=== PATIENT | female | born 1990 | race Two or more races ===

== ENCOUNTER 2020-09-10 14:57 | Outpatient (CLI) | payer MEDICAID ==
--- NOTE | 2020-09-10 17:06 | Ultrasound Report ---
PROCEDURE: Pelvic w/Transvaginal INDICATIONS: MENORRHAGIA TECHNIQUE: Real-time scanning was performed of the pelvic organs, with image documentation. Additional endovagi nal scanning was necessary due to incomplete visualization of the adnexal and endometrial structures by transabdominal scanning. COMPARISON: None. FINDINGS: Transabdominal scanning: Limited scanning through the kidneys shows no hydronephrosis. No pathologi c free abdominal or pelvic fluid. Endovaginal scanning: Uterus: Uterus is normal in size at 7.4 x 2.9 x 5.2 cm. The endometrium measures 5 mm in combined t hickness. Normal endometrial echotexture. Ovaries: Right ovary measures 3.1 x 2.2 x 2.3 cm. Right ovarian volume measures 8.1 mL. Left ovary m easures 2.5 x 2.6 x 3.4 cm with ovarian volume of 11.4 mL. There are less than 12 follicles visualize d in the bilateral ovaries. No suspicious ovarian or adnexal mass lesion. IMPRESSION: Unremarkable sonographic evaluation of the pelvis. Reviewed by: Philippe Chang MD on 09/10/2020 5:05 PM PST Approved by: Philippe Chang MD on 09/10/2020 5:05 PM PST Station ID: [id number]
== END 2020-09-10 14:58 | disposition home or self-care (01) ==
LOC: DI 14:57
PROVIDERS: ATTEND Nurse Practitioner Obstetrics & Gynecology
DX: N92.0 Excessive and frequent menstruation with regular cycle (principal); R53.83 Other fatigue; L65.9 Nonscarring hair loss, unspecified
CPT/HCPCS: 36415; 80053; 84403; 84439; 84443; 85027

== ENCOUNTER 2020-09-10 16:05 | Outpatient (CLI) | payer MEDICAID ==
[2020-09-10 16:26] LABS: HGB - HEMOGLOBIN 13.1 g/dL (12.0-16.0); MEAN CORPUSCULAR HEMOGLOBIN 30.8 pg (27.0-31.0); MEAN CORPUSCULAR HGB CONC 33.4 g/dL (32.0-36.0); MEAN CORPUSCULAR VOLUME 92.2 fL (81.0-99.0); RED BLOOD COUNT 4.25 10^6/uL (4.20-5.40); RED CELL DISTRIBUTION WIDTH 12.8 % (12.0-15.0); WHITE BLOOD COUNT 4.2 x10^3/uL (4.8-10.8)
[2020-09-10 16:42] LABS: ALBUMIN 4.6 g/dL (3.2-5.5); ALBUMIN/GLOBULIN RATIO 1.5 (1.0-2.2); BILIRUBIN,TOTAL 0.8 mg/dL (0.2-1.0); CALCIUM 9.8 mg/dL (8.5-10.3); CREATININE 0.7 mg/dL (0.4-1.0); TOTAL PROTEIN 7.6 g/dL (6.7-8.2)
[2020-09-10 17:00] LABS: THYROID STIMULATING HORMONE 1.79 uIU/mL (0.34-5.60)
[2020-09-10 17:02] LABS: FREE T4 (FREE THYROXINE) 1.3 ng/dL (0.58-1.64)
== END 2020-09-10 16:06 | disposition home or self-care (01) ==
LOC: LAB 16:05
PROVIDERS: ATTEND Nurse Practitioner Obstetrics & Gynecology
DX: R53.83 Other fatigue (principal); L65.9 Nonscarring hair loss, unspecified; N92.0 Excessive and frequent menstruation with regular cycle
CPT/HCPCS: 36415; 80053; 84403; 84439; 84443; 85027

== ENCOUNTER 2020-11-27 15:24 | Outpatient (CLI) | payer MEDICAID ==
[2020-11-27 16:31] VITALS: BP 110/61
--- NOTE | 2020-11-27 16:31 | SLEEP CARE CONSULTATION ---
Information from patient questionnaire entered by Prashant Lopez. I have reviewed and concur with the information entered by Prashant Lopez. This document represents the service I personally performed and the decisions made by me, Jessie Owen ARNP. History of Present Illness Service Date and Time: 11/27/2020 1524 Reason for Visit: New patient Chief Complaint: reports: Unrefreshed sleep, Snoring (rarely), Excessive daytime sleepiness, Fatigue, Frequent awakenings at night, Other (sexsomnia). denies: Observed pauses in breathing Date of Onset: Since 5, besides sexsomnia Usual bedtime: 10 PM Time it takes to fall asleep: lately less than 1 hour Snores at night: No (Not sure, partner says no) Observed to quit breathing while asleep: No Sleeps alone due to snoring: No Number of times waking at night: 2-15, depends Reasons for waking at night: reports: Bathroom, Other (Just awake, bathroom when I was younger). denies: Choking, Snoring, Gasping for air Toss, Turn, or Twitch while sleeping: Yes Recalls having dreams: Yes Usually gets out of bed at: 7 AM Feels refreshed in the morning: No Morning headache: Yes (1-2 times a month) Sleepy or fatigued during the day: Yes Ever fallen asleep while driving: No Takes day naps: No (But I want to) Dreams during day naps: Yes Prior sleep studies: No Additional HPI information: I had the pleasure of seeing DOMO DUENAS today regarding the possibility of her having a sleep disorder. Her current complaints are insomnia, frequent night awakening, unrefreshed sleep, excessive daytime sleepiness, fatigue and sexsomnia. She has had insomnia since she was a child. She feels it has improved as an adult in the last few years but she continues to be excessively sleepy during the day. She is not sleeping through the night. She feels like she does not go deep enough to sleep but if she does dream while she sleeps she feels more exhausted in the morning. She has tried oral melatonin to help her go to sleep but the pills did not seem to help much. She states the liquid melatonin works better as her body seems to process it faster so she can sleep. She get "crazy active dreams" with this however. It takes 1-2 hours to get to sleep at night without the melatonin. She then wakes up fully alert after 1-2 hours, takes 30 minutes to 3 hours to go back to sleep. Or she may not get back to sleep at all. She tries to stay away from phone, TV or other distractions that would keep her from going back to sleep. She feels that not enough sleep is affecting her physical and mental well being. Another concern is that she has had 5-6 incidences of sexsomnia with her current partner and is concerned about this new symptom. She has a history of bruxism. She does snore on occasion, especially after drinking alcohol or being really tired. Her grandmother should be on CPAP for sleep apnea but is on nocturnal oxygen. - Parasomnia Symptoms Ever been unable to move upon waking from sleep: Yes Walks in sleep: No Talks in sleep: No Ever acted out dreams in sleep: No Ever felt weak in the knees when startled or emotional: Yes (never fallen to ground) Bothered by creepy, crawly, restless sensations in legs: No Problems with memory or concentration: Yes (both, overall blurriness of fatigue slows brain down) Subjective Initial Ashley Sleepiness Scale score: 15 (in 2020) Past Medical History Past Medical History: reports: Claustrophobia, Anxiety, Depression, GERD Social History The patient's occupation is a [employer]. Patient is Single and lives in [place]. Have you smoked in the past 12 months: No Cigarettes per day (20/pack): 2 Years of smokin Quit date: 2012 Smoking Pack Years: 0.2 Alcohol use: Yes Alcohol amount and frequency: 1 beer once a week Caffeine use: Yes Caffeine amount and frequency: 1/2 cup of coffee a week Family History Family history of sleep disordered breathing: Yes (apnea-grandmother) Family Hx Sleep Apnea: Grandparent: Sleep apnea - Untreated Allergies and Home Medications Drug allergies reviewed: Yes (penicillin) Home medication list reviewed: Yes Allergy and home medication list: daily vitamins probiotic fiber liquid Melatonin for bedtime Review of Systems Cardiovascular: denies: high blood pressure Gastrointestinal: reports: heartburn, abdominal pain Urinary: reports: frequency, urgency Neurological: denies: headaches Psychiatric: reports: anxiety, depression, claustrophobia Ear/Nose/Throat: reports: dry mouth/throat (a little bit, uses mouthwash that helps). denies: tonsillectomy, wisdom teeth removed Endocrine: reports: sluggishness (tired), increased urination, unexplained weakness Musculoskeletal: reports: neck pain, back pain, muscle pain or cramping Immunologic: reports: allergies to food or environment Physical Exam Blood Pressure: 110/61 Cuff size: wrist Heart Rate: 80 O2 Saturation: 100 Height: 5 ft 11 in Weight: 151 lb Body Mass Index: 21.0 BMI Classification: Healthy weight Neck circumference: 12.5 (inches) Nostrils: patent to airflow Mouth and throat: narrow oropharynx Soft palate: long Hard palate: normal Uvula: normal Uvula visualization: 50% Mallampati Class II Tongue: enlarged in size with teeth welch on lateral edges Tonsils: 1+ Neck: normal w/o lymphadenopathy or thyromegaly Heart: regular rate and rhythm Lungs: clear bilaterally Impression and Plan 1. Suspected Obstructive Sleep Apnea-Hypopnea Syndrome, as suggested by a history of occasional snoring, frequent awakening during the night, unrefreshed sleep, cognitive impairment, and excessive daytime sleepiness. Narrow oropharynx and obesity are common predisposing factors for obstructive sleep apnea-hypopnea syndrome. I recommend proceeding to polysomnography to confirm the diagnosis and to assess severity. If the patient has significant sleep disordered breathing, a manual CPAP titration study will also be performed to find the optimal treatment pressure. I informed the patient of what the sleep studies involve and after sahara e discussion, obtained agreement to proceed. The pathophysiology of obstructive sleep apnea-hypopnea syndrome was discussed with the patient and health risks of cardiovascular and cerebrovascular disease if not treated. Risks of drowsy driving discussed in detail and patient advised to avoid long distance driving and to sheeting puller at the first sign of drowsiness. Patient agreed to plan. * Schedule polysomnography +- manual CPAP titration study and return in 1-2 weeks after the study to discuss result and initiate therapy. * Avoid long distance driving or driving when feeling sleepy. * Avoid alcohol, sedative and muscle relaxant around bedtime. * Review instructions provided by trained office staff on how to prepare for the sleep study. * Return for follow-up after sleep study completed. Visit Type: In Office Time Spent with Patient (minutes): 34 Provider Statement: I spent 100% of the Face to Face Visit with the patient with greater than 50% spent counseling the patient and coordination of care.
== END 2020-11-27 15:25 | disposition home or self-care (01) ==
LOC: SC 15:24
PROVIDERS: ATTEND Nurse Practitioner Family
DX: G47.10 Hypersomnia, unspecified (principal); R41.89 Other symptoms and signs involving cognitive functions and awareness; G47.8 Other sleep disorders; R06.83 Snoring; Z87.891 Personal history of nicotine dependence
CPT/HCPCS: 99203; 99212

== ENCOUNTER 2023-04-27 08:00 | Outpatient (CLI) | payer MEDICAID ==
[2023-04-27 19:05] LABS: CHLAMYDIA TRACHOMATIS DNA NEGATIVE (NEGATIVE); NEISSERIA GONORRHOEAE DNA NEGATIVE (NEGATIVE)
[2023-04-27 20:25] LABS: BACTERIAL VAGINOSIS DNA NEGATIVE (NEGATIVE); CANDIDA GLABRATA DNA NEGATIVE (NEGATIVE); CANDIDA GROUP DNA NEGATIVE (NEGATIVE); CANDIDA KRUSEI DNA NEGATIVE (NEGATIVE); TRICHOMONAS VAGINALIS DNA NEGATIVE (NEGATIVE)
== END 2023-04-27 23:59 | disposition home or self-care (01) ==
LOC: LAB.WC 08:00
PROVIDERS: ATTEND Nurse Practitioner
DX: Z11.3 Encounter for screening for infections with a predominantly sexual mode of transmission (principal)
CPT/HCPCS: 81514; 87491; 87591; 87661

== ENCOUNTER 2023-05-03 08:03 | Outpatient (CLI) | payer MEDICAID ==
[2023-05-03 15:43] LABS: THYROID STIMULATING HORMONE 2.43 uIU/mL (0.34-5.60)
[2023-05-03 15:50] LABS: PROLACTIN 17.75 ng/mL
[2023-05-04 06:11] LABS: PROGESTERONE 0.1 ng/mL (.); RPR Non Reactive (Non Reactive)
[2023-05-04 07:10] LABS: VITAMIN D 25-HYDROXY 35.8 ng/mL (30.0-100.0)
[2023-05-04 22:07] LABS: FREE TESTOSTERONE(DIRECT) 1.7 pg/mL (0.0-4.2); TESTOSTERONE 16 ng/dL (8-60)
[2023-05-05 13:10] LABS: ANTINUCLEAR ANTIBODIES IFA Negative (.)
== END 2023-05-03 08:04 | disposition home or self-care (01) ==
LOC: LAB.S 08:03
PROVIDERS: ATTEND Nurse Practitioner
DX: R53.83 Other fatigue (principal); L65.9 Nonscarring hair loss, unspecified; N64.4 Mastodynia; Z91.018 Allergy to other foods
CPT/HCPCS: 36415; 81599; 82306; 82397; 82607; 82626; 82670; 82728; 83001; 83002; 84143; 84144; 84146; 84270; 84402; 84403; 84425; 84443; 86038; 86592

== ENCOUNTER 2023-08-23 14:50 | Outpatient (CLI) | payer MEDICAID | END 2023-08-23 14:51 | disposition home or self-care (01) | LOC: RT 14:50 | PROVIDERS: ATTEND Nurse Practitioner | DX: I49.9 Cardiac arrhythmia, unspecified (principal) | CPT/HCPCS: 93005 ==

== ENCOUNTER 2023-12-10 11:35 | Outpatient (CLI) | payer MEDICAID | END 2023-12-10 11:36 | disposition home or self-care (01) | LOC: LAB.S 11:35 | PROVIDERS: ATTEND Nurse Practitioner | DX: N92.0 Excessive and frequent menstruation with regular cycle (principal) | CPT/HCPCS: 86850; 86900; 86901 ==

== ENCOUNTER 2023-12-27 08:00 | Outpatient (CLI) | payer MEDICAID | END 2023-12-27 23:59 | disposition home or self-care (01) | LOC: LAB.S 08:00 | PROVIDERS: ATTEND Physician Assistant Medical | DX: J02.9 Acute pharyngitis, unspecified (principal) | CPT/HCPCS: 87070 ==

== ENCOUNTER 2024-06-11 14:53 | Outpatient (CLI) | payer MEDICAID ==
--- NOTE | 2024-06-12 05:59 | Ultrasound Report ---
PROCEDURE: Pelvic w/Transvaginal INDICATIONS: PELVIC PAIN TECHNIQUE: Real-time scanning was performed of the pelvic organs, with image documentation. Additional endovagi nal scanning was necessary due to incomplete visualization of the adnexal and endometrial structures by transabdominal scanning. COMPARISON: Pelvic ultrasound 09/10/2020 FINDINGS: Uterus: Uterus is anteverted and normal in size at 8.9 x 4.0 x 5.0 cm. The myometrium is heterogeno us. The endometrium measures 10 mm in combined thickness. A small amount of fluid is present in the cervix. Mildly coalescing cystic changes at the cervix. Ovaries: The right ovary measures 2.4 x 2.9 x 4.2 cm, with a calculated ovarian volume of 12.2 cc. The left ovary measures 4.2 x 3.5 x 3.2 cm, with a calculated ovarian volume of 24.3 cc. The ovaries have a normal sonographic appearance. Less than 12 follicles can be seen in each ovary. No adnexal masses are seen. No cystic lesions measuring greater than 3 cm. 2.3 cm dominant follicle in the left ovary. Other: No pathologic free abdominal or pelvic fluid. IMPRESSION: 1.Mild endocervical fluid with coalescing cystic change at the cervix. While these findings may be re lated to the phase of the menstrual cycle at the time of imaging and probable nabothian cysts, direct visual inspection would be recommended for confirmation. 2.No other sonographic abnormality of the uterus or ovaries. Reviewed by: Antony Talley MD on 06/12/2024 5:58 AM PDT Approved by: Antony Talley MD on 06/12/2024 5:58 AM PDT Station ID: [id number]
== END 2024-06-11 14:54 | disposition home or self-care (01) ==
LOC: DI 14:53
PROVIDERS: ATTEND Nurse Practitioner
DX: R10.2 Pelvic and perineal pain (principal)